=== PATIENT | male | born 1940 | race Caucasian/White ===

== ENCOUNTER 2019-07-26 18:53 | Emergency (ER) | payer MEDICARE, OTHER ==
--- NOTE | 2019-07-26 19:21 | ER Document Report ---
HPI - HPI Patient complains to provider of: sore throat Time Seen by Provider: 07/26/19 19:09 Onset: Yesterday Onset/Duration: Sudden Quality of pain: Achy Pain Level: 2 Context: 79-year-old male with history of heart attack presents to the emergency department with complaints of sore throat that started yesterday. Denies fever vomiting diarrhea. Denies shortness of breath denies chest pain. Denies COVID exposure. Reports he is eating drinking voiding without any problems. Patient did recently move to the [place] area from [place]. Patient r tay he is here to be tested for the virus. Associated Symptoms: denies: Fever Exacerbated by: Denies Relieved by: Denies Similar symptoms previously: No Recently seen / treated by doctor: No - EENT EENT: REPORTS: Sore Throat. DENIES: Ear Pain, Eye problems - NEURO Neurology: DENIES: Headache, Weakness, Vision blurred, Dizzinesss / Vertigo - CARDIOVASCULAR Cardiovascular: DENIES: Chest pain - RESPIRATORY Respiratory: DENIES: Trouble Breathing, Coughing - GASTROINTESTINAL Gastrointestinal: DENIES: Abdominal Pain, Black / Bloody Stools - URINARY Urinary: DENIES: Dysuria, Urgency, Frequency - MUSCULOSKELETAL Musculoskeletal: DENIES: Extremity pain Past Medical History - General Information source: Patient - Social History Smoking Status: Current Every Day Smoker Cigarette use (# per day): Yes Frequency of alcohol use: Social Family History: None Patient has suicidal ideation: No Patient has homicidal ideation: No - Past Medical History Cardiac Medical History: Reports: Hx Heart Attack EENT Medical History: Reports: Ears - Hard of hearing bilateral hearing aids Neurological Medical History: Reports: Other - Alzheimer's Surgical Hx: Negative Vertical Provider Document - CONSTITUTIONAL Agree With Documented VS: Yes Exam Limitations: No Limitations General Appearance: WD/WN, No Apparent Distress - HEENT HEENT: Atraumatic, Normocephalic, Pharyngeal Erythema - Good airway no tonsillar exudate no tonsillar hypertrophy. negative: Conjuctival Injection, Pharyngeal Exudate, Tympanic Membrane Red - Bilateral hearing aid in place - NECK Neck: Normal Inspection, Supple. negative: Lymphadenopathy-Left, Lymphadenopathy-Right - RESPIRATORY Respiratory: Breath Sounds Normal, No Respiratory Distress - CARDIOVASCULAR Cardiovascular: Regular Rate, Regular Rhythm - GI/ABDOMEN Gastrointestinal: Abdomen Soft, Abdomen Non-Tender - BACK Back: Normal Inspection - MUSCULOSKELETAL/EXTREMETIES Musculoskeletal/Extremeties: MAEW, FROM, Non-Tender - NEURO Level of Consciousness: Awake, Alert, Appropriate - DERM Integumentary: Warm, Dry, No Rash - No visible rash Course - Re-evaluation Re-evalutation: 07/26/19 20:39 79-year-old male with history of VT, hyperlipidemia, high blood pressure and review of records shows he is taking medications for Alzheimer's presents today with complaints of sore throat since yesterday. He denies fever vomiting diarrhea. Denies chest pain denies shortness of breath. Denies covid exposure but reports he just moved here recently approximately 4 weeks ago from [place]. Strep influenza and COVID testing initiated. Covid testing was completed on this patient based on the revised guidelines for testing effective June 24, 2019. *Is 65 years or older. * The patient has CAD, VT in the past. Review of his medications notes history of HTN, Hyperlipidemia and medications for alzheimers. Patient presents with sore throat and request for Covid 19 testing. Patient does not have emergency worriesome symptoms such as difficulty breathing, shortness of breath, chest pain, pressure, confusion or cyanosis. Patient appears suitable for discharge. They do not have any chronic medical conditions such as diabetes, CAD, immune deficiency, chronic lung disease or chronic kidney disease. Patient's vital signs are stable and patient is nontoxic in appearance. Patient was instructed on the importance of quarantine until he is notified of negative results.Good return precautions have been discussed with patient, patient verbalized understanding and is agreeable with discharge plan of care at this time. - Vital Signs Vital signs: Temp Pulse Resp BP Pulse Ox 98.1 F 57 L 16 147/114 H 96 07/26/19 18:58 07/26/19 18:57 07/26/19 18:57 07/26/19 18:57 07/26/19 18:57 Discharge - Discharge Clinical Impression: Sore throat Condition: Stable Disposition: HOME, SELF-CARE Instructions: Sore Throat ([facility]) Additional Instructions: A lot of people are*You have been evaluated for a sore throat, Covid test *The influenza and strep test were negative. A throat culture is pending. You may be contacted in 3 to 4 days should you need antibiotics. In the meantime gargle with warm salt water and suck on throat lozenges for comfort *Monitor your temperature take Tylenol as indicated *Do not let anyone drink/eat after you *Good hand washing, quarantine until you are notified by the health department of your Covid results *Follow-up with a primary care provider within 1 week for recheck *Return to the emergency department immediately for trouble swallowing, shortness of breath, concerns Monitor your blood pressure. Your blood pressure was elevated today. This may be because you were anxious, in pain or because you need medication. It is important to follow up with your primary care provider for full evaluation. As a person under investigation for Covid 19, the [facility], division of public health advises you to adhere to the following guidance until your test results are reported to you. If your angie t result is positive, you will receive additional information from your provider and your local health department at that time. Remain at home until you are cleared by the health provider or public health authorities. Keep a log of visitors to your home, notify any visitors to your home of your isolation status. If you plan to move to a new address or leave the [facility], notify the local [facility] department in your County. Call your doctor or seek care if you have an urgent medical need. Before seeking medical care, call ahead to get instructions from the provider before arriving at the medical office clinic or hospital. Notify them that you are being tested for the virus that causes Covid 19 so that arrangements can be made, as necessary, to prevent transmission to others in the healthcare setting. Next, notify the local health department in your county. If a medical emergency arises and you need to call 911, inform dispatch and the first responders that you are being tested for the virus that causes Covid 19. Next, notify the local health department in your county. Guidance for worsening S/SX: For worsening symptoms, patient has been advised to contact their Primary Care Provider, or go to the nearest Emergency Department. Forms: Elevated Blood Pressure
[2019-07-26 21:27] LABS: A TYPE INFLUENZA AG NEGATIVE (NEGATIVE); B INFLUENZA AG NEGATIVE (NEGATIVE)
[2019-07-26 21:48] VITALS: BP 162/85
== END 2019-07-26 21:50 | disposition home or self-care (01) ==
LOC: ER 18:53
DX: J02.9 Acute pharyngitis, unspecified (principal); F17.210 Nicotine dependence, cigarettes, uncomplicated; I10 Essential (primary) hypertension; I25.2 Old myocardial infarction; G30.9 Alzheimer's disease, unspecified; F02.80 Dementia in other diseases classified elsewhere, unspecified severity, without behavioral disturbance, psychotic disturbance, mood disturbance, and anxiety; Z79.899 Other long term (current) drug therapy; Z20.828 Contact with and (suspected) exposure to other viral communicable diseases
CPT/HCPCS: 99283; 87070; 87880; 87804; U0003; 87635